=== PATIENT | female | born 1975 ===

== ENCOUNTER 2023-07-26 13:28 | Outpatient (CLI) | payer OTHER, SELFPAY ==
--- NOTE | ~2023-07-26 | MR_ITS ---
MRI of the left ankle Clinical history: Posterior tibial tendinitis Technique: Coronal proton-density and proton-density fat-sat images, axial proton-density and proton- density fat-sat images, and sagittal proton-density and proton-density fat-sat images were acquired. Findings: Syndesmotic ligaments are intact. There is probable thinning of the anterior talofibular li gament. Calcaneofibular ligament and posterior talofibular ligament are intact. Deltoid ligament is i ntact. There is minimal tenosynovitis of the tibial posterior tendon sheath. Medial flexor tendons otherwise are unremarkable. Peroneal tendons, anterior extensor tendons, and Achilles tendon are intact. There is no osteochondral lesion of the talar dome. Bone marrow signals and joint spaces are preserve d. There is a ganglion cyst extending just above the talar head, measuring approximately 1.5 cm in ma ximum diameter. Plantar fascia is intact. No other mass lesion or fluid collection seen. Impression: Minimal tenosynovitis of the tibialis posterior tendon sheath. 1.5 cm ganglion cyst extending just above the talar head, probably extending from the tibiotalar join t. Reviewed, dictated and finalized at location [facility] Impression: Minimal tenosynovitis of the tibialis posterior tendon sheath. 1.5 cm ganglion cyst extending just above the talar head, probably extending fr om the tibiotalar joint.
== END 2023-07-26 13:29 ==
DX: M76.822 Posterior tibial tendinitis, left leg (principal)
CPT/HCPCS: 73721